=== PATIENT | male | born 1945 | race American Indian/Alaskan Native ===

== ENCOUNTER 2018-02-11 09:52 | Day surgery (SDC) | payer MEDICARE, OTHER ==
[2018-02-11] MEDS ORDERED: NACL 0.9% 1000 ML 1,000 ML ONE (10:06)
[2018-02-11] MEDS ORDERED: DIPRIVAN 10 MG/ML IV ONE (11:56)
--- NOTE | 2018-02-11 11:59 | Anesthesia Consultation ---
Anesthesia Consult and Med Hx Date of service: 02/11/18 - Airway ROM Head & Neck: Adequate Mental/Hyoid Distance: Adequate Mallampati Class: Class II Intubation Access Assessment: Probably Good - Pre-Operative Health Status ASA Pre-Surgery Classification: ASA2 - Pulmonary Hx Smoking: Yes Hx Sleep Apnea: (HIGH RISK) - Cardiovascular System Hx Hypertension: Yes (non complient) - Gastrointestinal Hx Gastroesophageal Reflux Disease: Yes
[2018-02-11] MEDS ORDERED: NACL 0.9% 1000 ML 1,000 ML IV SCH (12:00)
--- NOTE | 2018-02-11 12:00 | Anesthesia Day of Surgery ---
Anesthesia Day of Surgery - Day of Surgery Patient Examined: Yes Patient H&P Reviewed: Yes Patient is NPO: Yes
[2018-02-11] MEDS ORDERED: WATER FOR IRRIG STERILE IR ONE (12:26)
--- NOTE | 2018-02-11 12:29 | Operative Report ---
Operative Report Operative Report: 02/11/2018 Procedure: Esophagogastroduodenoscopy with multiple mucosal biopsies. Attending physician: Dante Goodwin MD Airline Transport Pilot: Dante Goodwin MD Indication: Patient is a 72 -year-old male who presented with a history of recurrent epigastric pain, heartburn and indigestion. An upper endoscopy is done to assess patient, so that treatment may be directed based on the findings. Consent: Informed consent was obtained after advising the patient and family regarding nature of this procedure, its indications, potential benefits as well as possible complications including but not limited to bleeding perforation and adverse reaction to medication, infection as well as other cardiopulmonary complications. An informed written and verbal consent was then obtained after due opportunity was provided for questions and answers. Monitoring: Patient was monitored continuously with pulse oximetry and electrocardiographic recordings as well as blood pressure recordings. Vital signs remained stable throughout this procedure with no untoward events. Preoperative assessment: Patient was assessed immediately prior to this procedure for capacity to tolerate monitored anesthesia care and moderate sedation as well as general anesthesia. Patient's ASA classification is 3, Mallampati class is 2, Hyomental distance is 3. Instrument: [employer] video endoscope Medications: Propofol given intravenously in divided doses. For details please refer to anesthesia records. Description of procedure: Patient was placed in the left lateral decubitus position after achieving sedation, the endoscope was introduced into the esophagus under direct vision. It was then advanced beyond the esophagus into the stomach and then beyond the stomach into the duodenum and to the second portion of the duodenum. It was subsequently withdrawn with careful inspection of all mucosal surfaces with the following findings. Findings: Patient has an irregular Z line at 38 cm. patient had erosive esophagitis of moderate severity with linear erosions seen in the distal esophagus. There was a small sliding hiatal hernia seen on entry into the stomach. There was erythema and erosions seen in the gastric antrum. Biopsies of the antrum were obtained for histopathology. The duodenum was normal to second portion. Impression: Irregular Z line. Erosive esophagitis of moderate severity Gastric antral erythema Gastric antral erosions Hiatal hernia. Plan: Continue treatment with proton pump inhibitors. Follow pathology report. Direct additional treatment based on the pathology report. Patient will be observed clinically. Additional recommendations will be made follow-up.
--- NOTE | 2018-02-11 12:29 | Discharge Summary ---
Short Stay Discharge Plan Activity: advance as tolerated Weight Bearing Status: Weight Bear as Tolerated Diet: regular Follow up with: KARI RANDALL MD [Primary Care Provider] - 7 Days
[2018-02-11] MEDS ORDERED: XYLOCAINE MPF 2% ONE (12:30)
[2018-02-11 12:57] VITALS: BP 162/75
--- NOTE | 2018-02-11 17:10 | Post Anesthesia Evaluation ---
- Post Anesthesia Evaluation Patient Participated: Yes Airway Patent: Yes Stable Respiratory Function: Yes Nausea/Vomiting: No Temp > 96.8F: Yes Pain Manageable: Yes Adequeate Hydration: Yes Anesthesia Complications: No Block Receding Appropriately: Not Applicable Patient on Ventilator: No
== END 2018-02-11 13:05 | disposition home or self-care (01) ==
LOC: GIO 09:52
PROVIDERS: ATTEND Internal Medicine Gastroenterology
DX: K29.50 Unspecified chronic gastritis without bleeding (principal); B96.81 Helicobacter pylori [H. pylori] as the cause of diseases classified elsewhere; K21.0 Gastro-esophageal reflux disease with esophagitis; I10 Essential (primary) hypertension; K44.9 Diaphragmatic hernia without obstruction or gangrene; F17.200 Nicotine dependence, unspecified, uncomplicated; Z83.71 Family history of colonic polyps
CPT/HCPCS: 43239; 88305; 88342; J2704; J7030